=== PATIENT | male | born 1990 | race Caucasian/White ===

== ENCOUNTER 2022-03-04 18:25 | Emergency (ER) | payer SELFPAY ==
[~2022-03-04] VITALS: Ht 182.9 cm; Wt 117.9 kg
[2022-03-04] MEDS ORDERED: CEPH500 PO (21:13)
== END 2022-03-04 21:42 | disposition home or self-care (01) ==
LOC: ER 18:25
DX: S62.524B Nondisplaced fracture of distal phalanx of right thumb, initial encounter for open fracture (principal); W31.2XXA Contact with powered woodworking and forming machines, initial encounter; Z23 Encounter for immunization
CPT/HCPCS: 73140; 90714; A9270